=== PATIENT | male | born 1965 | race Caucasian/White ===

== ENCOUNTER 2020-09-07 14:15 | Emergency (ER) | payer OTHER ==
[~2020-09-07] VITALS: Ht 162.6 cm; Wt 90.7 kg
[2020-09-07] MEDS ORDERED: TENORMIN25 MG PO (14:26)
[2020-09-07 14:52] LABS: ABSOLUTE EOSINOPHILS 0.1 thou/uL (0.0-0.7); ABSOLUTE LYMPHOCYTES 1.2 thou/uL (0.8-5.3); ABSOLUTE MONOCYTES 0.6 thou/uL (0.0-1.2); ABSOLUTE NEUTROPHILS 7.1 thou/uL (1.6-8.1); BASOPHILS 0.5 %; EOSINOPHILS 1.4 %; HEMATOCRIT 39.3 % (42.0-52.0); HEMOGLOBIN 13.3 gm/dL (14.0-18.0); LYMPHOCYTES 13.3 %; MCH 27.9 pg (26.0-34.0); MCHC 33.8 g/dL (28.0-37.0); MCV 82.6 fL (80.0-100.0); MONOCYTES 6.3 %; MPV 7.2 fl. (7.2-11.1); NUCLEATED RBCS 0 /100WBC; PLATELET COUNT* 298 thou/uL (150-400); POLYS 78.5 %; RBC 4.75 mil/uL (4.50-6.00); RDW-CV 13.1 % (10.5-14.5)
[2020-09-07 14:56] LABS: URINE BILIRUBIN NEGATIVE (Negative); URINE BLOOD NEGATIVE (Negative); URINE CLARITY CLEAR; URINE COLOR YELLOW; URINE GLUCOSE-RANDOM NEGATIVE (Negative); URINE KETONES NEGATIVE (Negative); URINE LEUKOCYTES-REFLEX NEGATIVE (Negative); URINE NITRITE-REFLEX NEGATIVE (Negative); URINE PROTEIN NEGATIVE (Negative); URINE UROBILINOGEN 0.2 E.U./dl (0.2-1.0)
[2020-09-07 15:01] LABS: CALCIUM 8.1 mg/dL (8.5-10.1); CREATININE 1.1 mg/dL (0.6-1.3); POTASSIUM 4.2 mmol/L (3.5-5.1)
[2020-09-07 15:09] LABS: ALBUMIN 3.4 g/dL (3.4-5.0); TOTAL BILIRUBIN 0.2 mg/dL (<0.1-1.0); TOTAL PROTEIN 7.7 g/dL (6.4-8.2)
[2020-09-07] MEDS ORDERED: HYDROCODON-ACE1 EAC7 PO (16:09)
[2020-09-07] MEDS ORDERED: LEVOFLOXACIN500 MG PO (16:09)
[2020-09-07 16:23] VITALS: BP 140/81
== END 2020-09-07 16:25 | disposition home or self-care (01) ==
LOC: M.ERS 14:15
PROVIDERS: Emergency Medicine Emergency Medical Services
DX: N45.1 Epididymitis (principal)